=== PATIENT | male | born 1995 | race Caucasian/White ===

== ENCOUNTER 2017-02-11 10:22 | Emergency (ER) | payer OTHER ==
[~2017-02-11] VITALS: Ht 157.5 cm; Wt 76.0 kg
[2017-02-11 10:24] VITALS: Ht 157.5 cm; Wt 76.0 kg
[2017-02-11] MEDS ORDERED: DEXAMETHASONE 10 MG/ML 1 ML INJ IM ONE (11:30)
[2017-02-11] MEDS ORDERED: ACETAMINOPHEN 160 MG/5ML CUP PO ONE (11:30)
[2017-02-11] MEDS ORDERED: PENICILLIN G BENZ 1.2 MIL UNIT SYG IM ONE (12:30)
[2017-02-11] MEDS ORDERED: LIDOCAINE 2% (MDV) 20 ML INJ INJ ONE (12:30)
[2017-02-11] MEDS ORDERED: TYL500 PO (12:52)
--- NOTE | 2017-02-11 12:57 | ERD ---
ER Documentation Chief Complaint Date/Time DATE: 02/11/17 TIME: 12:[address] since HPI This is a 21-year-old male presents to the ER with a sore throat that started on . Patient states that sore throat has gotten significantly worse. It hurts whenever he swallows. He has not had any fevers or chills. He does admit to headache and body aches. Patient does not have a cough. He denies any ear pain. There are no sick contacts at home. ROS 12 point review of systems was done, all negative except per HPI. Medications Home Meds Active Scripts Acetaminophen* (Tylenol*) 500 Mg Tab, 500 MG PO Q4H Y for MILD PAIN LEVEL 1-3 for 3 Days, TAB Prov:JULIA GARCIAGERI Rose 02/11/17 Allergies Allergies: Coded Allergies: No Known Allergy (Unverified , 02/11/17) PMhx/Soc Hx Alcohol Use: No Hx Substance Use: No Hx Tobacco Use: No Physical Exam Vitals Vital Signs Date Time Temp Pulse Resp B/P Pulse Ox O2 Delivery O2 Flow Rate FiO2 02/11/17 10:24 98.1 97 20 120/75 99 Physical Exam GENERAL: The patient is well-developed, well-nourished, in no acute distress. NECK: Cervical spine is non tender with no step off. Supple, no nuchal rigidity HEENT: Atraumatic. Pupils equal, round and reactive to light. Extraocular muscles are grossly intact. Conjunctivae pink, no discharge. Bilateral tympanic membranes are clear with no evidence of erythema, effusion or dulling of the light reflex. Tonsillar erythema with swelling, no kissing tonsils no uvular deviation. RESPIRATORY: Clear to auscultation bilaterally. There are no rales, wheezes or rhonchi. HEART: Regular rate and rhythm. No murmurs, clicks, rubs or gallops. NEUROLOGIC: Alert and oriented. SKIN: There is no rash. The skin is warm and dry. Results 24 hrs Current Medications Medications (Trade) Dose Ordered Sig/Jack Route PRN Reason Start Time Stop Time Status Last Admin Dose Admin Dexamethasone (Decadron) 10 mg ONCE ONCE IM 02/11/17 11:30 02/11/17 11:31 DC 02/11/17 11:39 Acetaminophen (Tylenol Liquid (Ped)) 1,000 mg ONCE ONCE PO 02/11/17 11:30 02/11/17 11:31 DC 02/11/17 11:38 Penicillin G Benzathine (Bicillin La) 1,200,000 units ONCE ONCE IM 02/11/17 12:30 02/11/17 12:31 DC 02/11/17 12:45 Lidocaine (Xylocaine 2% (Mdv) 20 ml) 20 ml ONCE ONCE INJ 02/11/17 12:30 02/11/17 12:31 DC Procedures/MDM This is a 21-year-old male presents here with sore throat. Patient's tonsils were significantly swollen he was given a dose of Decadron in the ER and Tylenol for the pain. Patient strep test was positive he was treated in the ER with a one-time dose of penicillin. He was sent home with Tylenol for pain. At this time suspicion for retropharyngeal abscess or peritonsillar abscess is low as there is no uvular deviation. Patient is afebrile and well-appearing. Patient is to follow-up with his primary care doctor within 1-2 days or return to ER sooner if symptoms worsen. My medical decision making was shared with the patient he understands and agrees with plan. Departure Diagnosis: Primary Impression: Strep throat Condition: Stable Patient Instructions: Strep Throat Additional Instructions: Call your primary care doctor TOMORROW for an appointment during the next 1-2 days.See the doctor sooner or return here if your condition worsens before your appointment time. CHI GARCIA Feb 11, 2017 12:57
== END 2017-02-11 13:21 | disposition home or self-care (01) ==
LOC: FTE 10:22
DX: J02.9 Acute pharyngitis, unspecified (principal)
CPT/HCPCS: 87880; 96372; J0561; J1100; Z7502; Z7610